=== PATIENT | female | born 1985 | race Caucasian/White ===

== ENCOUNTER 2021-08-30 10:41 | Emergency (ER) | payer BC ==
[2021-08-30 11:31] LABS: Urine Blood Negative (Negative); Urine Glucose Negative (Negative); Urine Protein Negative (Negative)
--- NOTE | 2021-08-30 12:04 | RAD REPORT ---
EXAM DESCRIPTION: RAD - Chest Single View - 08/30/2021 11:55 am CLINICAL HISTORY: near syncope Chest pain. COMPARISON: No comparisons FINDINGS: Portable technique limits examination quality. The lungs are grossly clear. The heart is normal in size. No displaced fractures. IMPRESSION: No acute intrathoracic process suspected.
[2021-08-30 12:12] LABS: Absolute Lymphocytes (CBC) 1.9 K/uL (0.7-4.9); Hematocrit 39.5 % (36.0-45.0); MPV 8.7 fL (7.6-11.3)
[2021-08-30] MEDS ORDERED: METOCLOPRAMIDE 10 MG/2mL INJ ONE (12:25)
[2021-08-30] MEDS ORDERED: NA CHLORIDE 0.9% 50 ML ONE (12:25)
[2021-08-30] MEDS ORDERED: DIPHENHYDRAMINE 50 MG/ML VIAL ONE (12:25)
[2021-08-30 12:27] LABS: BUN Blood Urea Nitrogen 6 mg/dL (7-18); Bicarbonate 27 mmol/L (21-32); Glucose Level 98 mg/dL (74-106); Potassium 4.1 mmol/L (3.5-5.1); Sodium Level 135 mmol/L (136-145); Troponin High Sensitivity 3.8 pg/mL (<58.9)
[2021-08-30] MEDS ORDERED: DIAZEPAM 10 MG/2 ML INJ SYRINGE ONE (12:32)
[2021-08-30] MEDS ORDERED: ONDANSETRON 4 MG/2 ML VIAL ONE (12:32)
--- NOTE | 2021-08-30 13:00 | RAD REPORT ---
EXAM DESCRIPTION: Chio Angio08/30/2021 12:43 pm CLINICAL HISTORY: Dizziness COMPARISON: None TECHNIQUE: 50 cc Isovue 370 was administered intravenously. 3D MIP reconstruction performed All CT scans are performed using dose optimization technique as appropriate and may include automated exposure control or mA/KV adjustment according to patient size. FINDINGS: The common carotid, internal carotid, external carotid arteries bilaterally are normal zarina iber. The vertebral arteries are codominant. No significant stenosis. No dissection seen. IMPRESSION: Unremarkable exam NASCET criteria used. Mild 0-49% stenosis Moderate 50-69% stenosis Severe 70-99% stenosis
--- NOTE | 2021-08-30 13:02 | RAD REPORT ---
EXAM DESCRIPTION: CTHead angio08/30/2021 12:42 pm CLINICAL HISTORY: Dizziness/headache COMPARISON: None TECHNIQUE: CT angiogram of the head was obtained. 3D MIPS reconstruction performed. All CT scans are performed using dose optimization technique as appropriate and may include automated exposure control or mA/KV adjustment according to patient size. FINDINGS: The basilar, internal carotid, anterior cerebral, middle cerebral and posterior cerebral a rteries are normal caliber. origin left posterior cerebral artery An aneurysm is not seen. A significant stenosis is not noted. IMPRESSION: Unremarkable CT angiogram head.
--- NOTE | 2021-08-30 13:19 | RAD REPORT ---
EXAM DESCRIPTION: CT - Head Brain Wo Cont - 08/30/2021 12:25 pm CLINICAL HISTORY: Dizziness COMPARISON: None. TECHNIQUE: Computed axial tomography of the head was obtained. IV contrast was not requested. All CT scans are performed using dose optimization technique as appropriate and may include automated exposure control or mA/KV adjustment according to patient size. FINDINGS: An intracranial bleed is not seen . The ventricles are normal in caliber. No extra-axial fluid collection is noted. Fluid within the sinuses/ mastoids is not seen. IMPRESSION: No acute intracranial abnormality is seen. If patient's symptoms persist MRI of the bra in would be recommended.
--- NOTE | 2021-08-30 16:11 | ER ---
Nurse's Notes [facility] Name: Cristin Encarnacion Age: 35 yrs Sex: Female : 1985 Arrival Date: 08/30/2021 Time: 10:44 Bed 12 Private MD: Diagnosis: Headache Presentation: 08/30 11:13 Chief complaint: Patient states: R sided headache since mid-July, also has been having ph near-syncopal episodes, has seen PCP and neuro but feels that symptoms have been worsening over the past few days. Reports headache, dizziness, nausea. Ebola Screen: No symptoms or risks identified at this time. Initial Sepsis Screen: Does the patient meet any 2 criteria? No. Patient's initial sepsis screen is negative. Does the patient have a suspected source of infection? No. Patient's initial sepsis screen is negative. Risk Assessment: Do you want to hurt yourself or someone else? Patient reports no desire to harm self or others. Onset of symptoms was August 30, 2021. 11:13 Method Of Arrival: Ambulatory ph 11:13 Acuity: LEXUS 3 ph 08/31 12:56 Coronavirus screen: Vaccine status:. iw Triage Assessment: 08/30 11:00 Pain: Also complains of no other associated symptoms. 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 - Social history:: Smoking status: Patient denies any tobacco usage or history of. Screenin:20 Abuse screen: Denies threats or abuse. Denies injuries from another. Nutritional ph screening: No deficits noted. Tuberculosis screening: No symptoms or risk factors identified. Fall Risk None identified. Assessment: 12:06 General: Appears in no apparent distress. comfortable, well groomed, Behavior is calm, ph cooperative, appropriate for age. Pain: Complains of pain in right temporal area. Neuro: Level of Consciousness is awake, alert, obeys commands, Oriented to person, place, time, situation, Reports dizziness, headache in right parietal area. Cardiovascular: Reports lightheadedness, nausea, vomiting, Denies chest pain, shortness of breath, Capillary refill < 3 seconds in bilateral fingers Patient's skin is warm and dry. Respiratory: No deficits noted. GI: Reports nausea, vomiting. Derm: Skin is intact, is healthy with good turgor, Skin is pink, warm \T\ dry. Musculoskeletal: Circulation, motion, and sensation intact. Range of motion: intact in all extremities. 12:35 Reassessment: Pt c/o worsening of symptoms while in CT getting scan, pt refusing to ph continue testing at this time, reports worsening dizziness and nausea, ERP notified by CT and IV Valium ordered, pt medicated in CT. 13:48 Reassessment: Patient appears in no apparent distress at this time. Patient and/or iw family updated on plan of care and expected duration. Pain level reassessed. Patient is alert, oriented x 3, equal unlabored respirations, skin warm/dry/pink. Vital Signs: 11:13 BP 135 / 87; Pulse 75; Resp 16; Temp 98.5; Pulse Ox 100% on R/A; ph ED Course: 10:44 Patient arrived in ED. ds1 10:47 Dexter Bhatti PA is PHCP. jmm 10:47 Epi March MD is Attending Physician. jmm 11:19 Triage completed. ph 11:19 Arm band placed on left wrist. ph 11:56 Isabel Manrique, RN is Primary Nurse. iw 11:57 XRAY Chest (1 view) In Process Unspecified. EDMS 12:07 Patient has correct armband on for positive identification. Bed in low position. Call ph light in reach. Side rails up X 1. Pulse ox on. NIBP on. Door closed. Noise minimized. 12:10 Inserted saline lock: 22 gauge in left antecubital area, using aseptic technique. ph 12:27 CT Head Brain wo Cont In Process Unspecified. EDMS 12:44 CT Head Angio In Process Unspecified. EDMS 12:44 CT Neck Angio In Process Unspecified. EDMS 14:41 EKG done, by ED staff, reviewed by Dexter SALDANA. mb7 16:10 Calixto Estrada MD is Referral Physician. jmm 17:00 No provider procedures requiring assistance completed. IV discontinued, intact, iw bleeding controlled, No redness/swelling at site. Pressure dressing applied. Administered Medications: 12:35 Drug: Valium (diazepam) 2 mg Route: IVP; Site: left antecubital; ph 13:00 Follow up: Response: No adverse reaction iw 13:46 Drug: Reglan (metoCLOPramide) 20 mg Route: IVP; Site: left antecubital; iw 14:00 Follow up: Response: No adverse reaction iw 13:46 Drug: diphenhydrAMINE 25 mg Route: IVP; Site: left antecubital; iw 14:00 Follow up: Response: No adverse reaction iw Outcome: 16:10 Discharge ordered by MD. colindres 17:00 Discharged to home ambulatory, with family. iw 17:00 Condition: good 17:00 Discharge instructions given to patient, family, Instructed on discharge instructions, follow up and referral plans. medication usage, Demonstrated understanding of instructions, follow-up care, medications, Prescriptions given X 2. 17:01 Patient left the ED. iw Signatures: Dispatcher [employer] EDMS Dexter Bhatti PA PA jmm Sanford, Demi ds1 Isabel Manrique RN RN Ava Parr RN RN Urvashi Juarez 7
--- NOTE | 2021-08-30 16:11 | EDPHYS ---
Physician Documentation [facility] Name: Cristin Encarnacion Age: 35 yrs Sex: Female : 1985 Arrival Date: 08/30/2021 Time: 10:44 Bed 12 Private MD: ED Physician Epi March HPI: 08/30 11:24 This 35 yrs old Female presents to ER via Ambulatory with complaints of Headache. jmm 11:24 The patient complains of pain to the right latter-day. Onset: The symptoms/episode jmm began/occurred gradually, 4 month(s) ago. Associated signs and symptoms: Pertinent positives: nausea, Pertinent negatives: altered mental status, neck stiffness, paresthesias, Photophobia rash, sinus congestion. This is a 35-year-old female with no known chronic medical conditions presents emerged part with complaints of ongoing headache which is been constant over the past 2 weeks. Patient states she hit her head approximately 4 months ago with no obvious injuries. Patient went to her neurologist who recommended MRI. Patient states she gets episodes of dizziness along with near syncopal episodes along with with a headache. Denies fever.. 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 - Social history:: Smoking status: Patient denies any tobacco usage or history of. ROS: 11:24 Constitutional: Negative for fever, chills, and weight loss, Cardiovascular: Negative jmm for chest pain, palpitations, and edema, Respiratory: Negative for shortness of breath, cough, wheezing, and pleuritic chest pain. 11:24 Neuro: Positive for dizziness, headache, near syncope. 11:24 All other systems are negative. Exam: 11:24 Constitutional: This is a well developed, well nourished patient who is awake, alert, jmm and in no acute distress. Head/Face: atraumatic. Eyes: EOMI, no conjunctival erythema appreciated ENT: Moist Mucus Membranes Neck: Trachea midline, Supple Chest/axilla: Normal chest wall appearance and motion. Cardiovascular: Regular rate and rhythm. No edema appreciated Respiratory: Normal respirations, no respiratory distress appreciated Abdomen/GI: Non distended, soft Back: Normal ROM Skin: General appearance color normal MS/ Extremity: Moves all extremities, no obvious deformities appreciated, no edema noted to the lower extremities Neuro: Awake and alert Psych: Behavior is normal, Mood is normal, Patient is cooperative and pleasant Vital Signs: 11:13 BP 135 / 87; Pulse 75; Resp 16; Temp 98.5; Pulse Ox 100% on R/A; ph MDM: 11:28 Patient medically screened. [facility] 16:10 Data reviewed: vital signs, nurses notes. Counseling: I had a detailed discussion with jens the patient and/or guardian regarding: the historical points, exam findings, and any diagnostic results supporting the discharge/admit diagnosis, lab results, radiology results, the need for outpatient follow up, to return to the emergency department if symptoms worsen or persist or if there are any questions or concerns that arise at home. Refusal of service: The patient/guardian displays adequate decision making capability and despite a detailed discussion of alternatives, benefits, risks, and consequences refuses: MRI of the brain. 08/30 11:24 Order name: Basic Metabolic Panel; Complete Time: 12:27 [facility] 08/30 11:24 Order name: CBC with Diff; Complete Time: 12:21 [facility] 08/30 11:24 Order name: Troponin HS; Complete Time: 12:27 [facility] 08/30 11:31 Order name: Urine Dipstick-Ancillary; Complete Time: 11:36 [facility] 08/30 11:32 Order name: Urine --Ancillary (enter results); Complete Time: 11:52 08/30 12:14 Order name: CREATININE WHOLE BLOOD; Complete Time: 12:21 [facility] 08/30 11:24 Order name: XRAY Chest (1 view); Complete Time: 12:06 [facility] 08/30 11:24 Order name: CT Head Brain wo Cont; Complete Time: 13:22 [facility] 08/30 11:24 Order name: CT Head Angio; Complete Time: 13:05 [facility] 08/30 11:24 Order name: CT Neck Angio; Complete Time: 13:05 [facility] 08/30 11:24 Order name: EKG; Complete Time: 11:24 [facility] 08/30 11:24 Order name: Cardiac monitoring; Complete Time: 14:42 [facility] 08/30 11:24 Order name: EKG - Nurse/Tech; Complete Time: 14:41 [facility] 08/30 11:24 Order name: IV Saline Lock; Complete Time: 12:20 [facility] 08/30 11:24 Order name: Labs collected and sent; Complete Time: 12:20 [facility] 08/30 11:24 Order name: O2 Per Protocol; Complete Time: 12:06 [facility] 08/30 11:24 Order name: O2 Sat Monitoring; Complete Time: 12:06 [facility] Administered Medications: 12:35 Drug: Valium (diazepam) 2 mg Route: IVP; Site: left antecubital; ph 13:00 Follow up: Response: No adverse reaction iw 13:46 Drug: Reglan (metoCLOPramide) 20 mg Route: IVP; Site: left antecubital; iw 14:00 Follow up: Response: No adverse reaction iw 13:46 Drug: diphenhydrAMINE 25 mg Route: IVP; Site: left antecubital; iw 14:00 Follow up: Response: No adverse reaction iw Disposition: 17:07 Co-signature as Attending Physician, Epi March MD. rn Disposition Summary: 08/30/21 16:10 Discharge Ordered Location: Home [facility] Condition: Stable [facility] Diagnosis - Headache [facility] Followup: [facility] - With: Calixto Estrada MD - When: 1 - 2 days - Reason: Recheck today's complaints, Continuance of care, Re-evaluation by your physician Discharge Instructions: - Discharge Summary Sheet [facility] - Post-Concussion Syndrome [facility] Forms: - Medication Reconciliation Form [facility] - Thank You Letter [facility] - Antibiotic Education [facility] - Prescription Opioid Use [facility] Prescriptions: - Reglan 10 mg Oral Tablet - take 1 tablet by ORAL route every 6 hours take 30 minutes before meals and at [facility] bedtime; 20 tablet; Refills: 0, Product Selection Permitted - orphenadrine citrate 100 mg Oral Tablet Sustained Release - take 1 tablet by ORAL route 2 times per day As needed; 20 tablet; Refills: 0, [facility] Product Selection Permitted Signatures: Dispatcher [employer] Dexter Bills PA PA [facility] Isabel Manrique, RN RN Epi Srivastava MD MD rn Hall, Patricia, RN RN
[2021-08-30 17:19] VITALS: BP 135/87; TEMP 98.5; O2SAT 100
--- NOTE | 2021-08-31 08:30 | EKG ---
Test Date: 2021-08-30 Test Time: 14:41:10 [place] Tier: [place] MEASUREMENT RESULTS: Intervals: Rate: 56 DC: 164 QRSD: 104 QT: 426 QTc: 411 [place]: P: 64 DC: 164 QRS: 90 T: 74 INTERPRETIVE STATEMENTS: Sinus bradycardia Rightward axis Borderline ECG No previous ECG available for comparison Electronically Signed On 08-31-21 08:28:03 CDT by Ruodlph Cisse
== END 2021-08-30 17:01 | disposition home or self-care (01) ==
LOC: ER 10:41
DX: R51.9 Headache, unspecified (principal); R42 Dizziness and giddiness; R55 Syncope and collapse
CPT/HCPCS: 93005; 85025; 80048; 36415; 81025; 82565; 81003; 84484; 70450; 70496; 70498; 71045; 96375; 96374; 99284; Q9967; J2765; J1200; J3360; J2405